=== PATIENT | male | born 1990 | race Caucasian/White ===

== ENCOUNTER 2024-07-26 09:42 | Outpatient (CLI) | payer BC | END 2024-07-26 09:43 | disposition home or self-care (01) | LOC: CSHCT 09:42 | PROVIDERS: ATTEND Family Medicine | DX: N19 Unspecified kidney failure (principal); K72.00 Acute and subacute hepatic failure without coma; K76.0 Fatty (change of) liver, not elsewhere classified | CPT/HCPCS: 74176 ==